=== PATIENT | female | born 1945 | race Caucasian/White ===

== ENCOUNTER → 2017-04-10 | Outpatient (CLI) | payer OTHER ==
[2017-04-10 12:03] LABS: Basophils # (auto) 0.1 uL; Basophils % (auto) 0.7 % (0.0-2.0); Eosinophils # (auto) 0.1 uL; Hematocrit 42.6 % (36.0-46.0); Hemoglobin 13.9 g/dL (12.2-16.2); Lymphocytes # (auto) 2.5 uL; Lymphocytes % (auto) 22.7 % (10.0-50.0); Mean Corpuscular Hgb Conc. 32.6 g/dL (32.0-36.0); Mean Platelet Volume 8.9 fL (6.9-10.8); Monocytes # (auto) 0.9 uL; Monocytes % (auto) 8.1 % (0.0-12.0); Neutrophils # (auto) 7.6 uL; Neutrophils % (auto) 67.5 % (37.0-80.0); Nucleated Red Blood Cells % 0.1 %; Platelet Count (auto) 221 10^3/uL (140-450); Red Cell Distribution Width 14.5 % (11.8-14.3); White Blood Cell 11.2 10^3/uL (4.4-10.8)
[2017-04-10 12:43] LABS: Albumin 3.4 g/dL (3.4-5.0); BUN/Creatinine Ratio 23.6; Bilirubin, Total 0.2 mg/dL (0.2-1.0); Calcium 9.8 mg/dL (8.5-10.1); Potassium 4.8 mmol/L (3.5-5.1); Total Protein 7.3 g/dL (6.4-8.2)
== END | disposition home or self-care (01) ==
LOC: LAB 11:29
PROVIDERS: ATTEND Internal Medicine
DX: Z13.1 Encounter for screening for diabetes mellitus (principal); I10 Essential (primary) hypertension; E78.5 Hyperlipidemia, unspecified; R79.89 Other specified abnormal findings of blood chemistry
CPT/HCPCS: 36415; 80053; 80061; 82043; 83036; 84443; 85025

== ENCOUNTER 2017-04-17 15:30 | Inpatient (IN) | payer OTHER ==
[~2017-04-17] VITALS: Ht 162.6 cm; Wt 116.6 kg
[2017-04-17] MEDS ORDERED: SODIUM CHLORIDE 0.9% 1,000 ML IV ONE (16:05)
[2017-04-17] MEDS ORDERED: AZITHROMYCIN 500MG/D5W 250ML 250 ML IV ONE (16:15)
[2017-04-17] MEDS ORDERED: cefTRIAXone 1GM/50ML D5W 50 ML IV ONE (16:15)
[2017-04-17 16:36] LABS: Lactic Acid w/Reflex 2.4 mmol/L (0.4-2.0)
[2017-04-17 16:45] LABS: Albumin 3.4 g/dL (3.4-5.0); Anion Gap 7 (5-15); Aspartate Aminotransferase 16 U/L (15-37); BUN/Creatinine Ratio 23.6; Basophils # (auto) 0.1 uL; Basophils % (auto) 0.7 % (0.0-2.0); Blood Urea Nitrogen 39 mg/dL (7-18); Calcium 9.6 mg/dL (8.5-10.1); Carbon Dioxide 29 mmol/L (21-32); Chloride 104 mmol/L (98-107); Eosinophils # (auto) 0.2 uL; GFR African American 40 mL/min; GFR Non-African American 33 mL/min; Glucose 137 mg/dL (74-106); Hematocrit 42.6 % (36.0-46.0); Hemoglobin 13.9 g/dL (12.2-16.2); Lymphocytes # (auto) 2.2 uL; Lymphocytes % (auto) 17.9 % (10.0-50.0); Magnesium 2.5 mg/dL (1.6-2.6); Mean Corpuscular Hgb Conc. 32.6 g/dL (32.0-36.0); Mean Corpuscular Volume 88.9 fL (80.0-100.0); Mean Platelet Volume 9.4 fL (6.9-10.8); Monocytes % (auto) 8.1 % (0.0-12.0); Neutrophils % (auto) 71.3 % (37.0-80.0); Platelet Count (auto) 218 10^3/uL (140-450); Potassium 4.9 mmol/L (3.5-5.1); Red Cell Distribution Width 14.7 % (11.8-14.3); Sodium 140 mmol/L (136-145); White Blood Cell 12.6 10^3/uL (4.4-10.8)
[2017-04-17 16:46] LABS: INR 0.9 (0.9-1.15); Partial Thromboplastin Time 25.3 sec (22.64-33.71); Prothrombin Time 9.8 sec (9.37-12.3)
[2017-04-17 16:49] LABS: Alkaline Phosphatase 96 U/L (45-117); Bilirubin, Total 0.3 mg/dL (0.2-1.0); Total Protein 6.9 g/dL (6.4-8.2)
[2017-04-17 17:11] LABS: REFLEX LACTIC ACID YES OR NO YES
[2017-04-17] MEDS ORDERED: DEXTROSE (50%) 50ML SYRG IV PRN (21:45)
[2017-04-17] MEDS ORDERED: SODIUM CHLORIDE 0.9% 1,000 ML IV SCH (21:45)
[2017-04-17 21:55] LABS: B-Type Natriuretic Peptide 29.5 pg/mL (0-100)
[2017-04-17] MEDS: InsuLIN REG 1unit/0.01ml Soln (100units/ml) SC SCH (21:58)
[2017-04-17] MEDS: ACCU-CHEK COMFORT CURVE STRIP VI SCH (21:58)
[2017-04-17 22:18] LABS: Temperature: 23.7 C (20.0-25.0)
[2017-04-18] VITALS (8 sets, daily range): BP systolic 91–117; BP diastolic 42–75
[2017-04-18] MEDS: IPRATROPIUM BROM 0.5 MG/2.5ML INH SOL NEB SCH ×4 (00:55→19:11)
[2017-04-18] MEDS: ALBUTEROL SULF 2.5 MG/0.5ML(0.5%) NEB SOLN NEB SCH ×4 (00:55→12:16)
[2017-04-18 06:38] LABS: Basophils # (auto) 0.1 uL; Basophils % (auto) 0.9 % (0.0-2.0); Eosinophils # (auto) 0.3 uL; Eosinophils % (auto) 2.6 % (0.0-7.0); Hematocrit 40.6 % (36.0-46.0); Hemoglobin 13.1 g/dL (12.2-16.2); Lymphocytes # (auto) 2.8 uL; Lymphocytes % (auto) 25.2 % (10.0-50.0); Mean Corpuscular Hemoglobin 28.8 pg (28.0-32.0); Mean Corpuscular Hgb Conc. 32.4 g/dL (32.0-36.0); Mean Corpuscular Volume 89.1 fL (80.0-100.0); Mean Platelet Volume 9.1 fL (6.9-10.8); Monocytes # (auto) 1.1 uL; Monocytes % (auto) 10.2 % (0.0-12.0); Neutrophils # (auto) 6.8 uL; Neutrophils % (auto) 61.1 % (37.0-80.0); Nucleated Red Blood Cells % 0.1 %; Platelet Count (auto) 196 10^3/uL (140-450); Red Cell Distribution Width 14.7 % (11.8-14.3); White Blood Cell 11.2 10^3/uL (4.4-10.8)
[2017-04-18] MEDS: InsuLIN REG 1unit/0.01ml Soln (100units/ml) SC SCH ×4 (07:00→21:55)
[2017-04-18 07:01] LABS: BUN/Creatinine Ratio 23.7; Calcium 9.2 mg/dL (8.5-10.1); Potassium 5.3 mmol/L (3.5-5.1)
[2017-04-18] MEDS: LEVOTHYROXINE SODIUM 50 MCG TAB PO SCH (07:14)
[2017-04-18] MEDS: ACCU-CHEK COMFORT CURVE STRIP VI SCH ×4 (07:18→21:55)
[2017-04-18] MEDS ORDERED: FURO40TA4 PO (09:03)
[2017-04-18] MEDS ORDERED: POTA10TA34 PO (09:03)
[2017-04-18] MEDS ORDERED: ALBU18 IN (09:03)
[2017-04-18] MEDS ORDERED: LISI40TA PO (09:03)
[2017-04-18] MEDS ORDERED: LEVO50TA7 PO (09:03)
[2017-04-18] MEDS ORDERED: METF-370 PO (09:03)
[2017-04-18] MEDS: AZITHROMYCIN 500MG/D5W 250ML 250 ML IV SCH (09:53)
[2017-04-18] MEDS ORDERED: DOXYCYCLINE HYC 100MG/250ML 250 ML IV SCH (10:00)
[2017-04-18] MEDS ORDERED: guaiFENesin-DEXTROMETHORPHAN 5ML SYR PO PRN (14:30)
[2017-04-18] MEDS ORDERED: cefTRIAXone 1GM/50ML D5W 50 ML IV ONE (14:30)
[2017-04-18] MEDS: SODIUM CHLORIDE 0.9% 1,000 ML IV SCH (16:58)
[2017-04-19 05:00] VITALS: BP 104/52
[2017-04-19 06:17] LABS: Urine RBC None Seen /hpf (0 - 4)
[2017-04-19 06:23] LABS: Basophils # (auto) 0.1 uL; Basophils % (auto) 0.9 % (0.0-2.0); Eosinophils # (auto) 0.3 uL; Eosinophils % (auto) 2.8 % (0.0-7.0); Hematocrit 41.2 % (36.0-46.0); Hemoglobin 13.4 g/dL (12.2-16.2); Lymphocytes # (auto) 2.5 uL; Lymphocytes % (auto) 22.8 % (10.0-50.0); Mean Corpuscular Hemoglobin 28.9 pg (28.0-32.0); Mean Corpuscular Hgb Conc. 32.5 g/dL (32.0-36.0); Mean Corpuscular Volume 88.9 fL (80.0-100.0); Mean Platelet Volume 8.9 fL (6.9-10.8); Monocytes # (auto) 1.1 uL; Neutrophils # (auto) 6.8 uL; Neutrophils % (auto) 63.5 % (37.0-80.0); Platelet Count (auto) 188 10^3/uL (140-450); Red Cell Distribution Width 14.5 % (11.8-14.3); White Blood Cell 10.8 10^3/uL (4.4-10.8)
[2017-04-19 06:28] LABS: Urine Bilirubin Negative (Negative); Urine Blood Negative /uL (Negative); Urine Color Yellow (Yellow); Urine Glucose Normal (Normal); Urine Ketone Negative (Negative); Urine Nitrite Negative (Negative); Urine Squamous Epithelial Cell FEW /hpf (<5); Urine Urobilinogen Normal (Negative); Urine pH 5.5 (5.0-8.0)
[2017-04-19] MEDS: LEVOTHYROXINE SODIUM 50 MCG TAB PO SCH (06:34)
[2017-04-19] MEDS: ACCU-CHEK COMFORT CURVE STRIP VI SCH ×4 (06:34→21:45)
[2017-04-19] MEDS: InsuLIN REG 1unit/0.01ml Soln (100units/ml) SC SCH ×4 (06:34→21:46)
[2017-04-19 06:42] LABS: BUN/Creatinine Ratio 24.7; Calcium 9.4 mg/dL (8.5-10.1); Magnesium 2.4 mg/dL (1.6-2.6); Potassium 4.5 mmol/L (3.5-5.1)
[2017-04-19] MEDS: IPRATROPIUM BROM 0.5 MG/2.5ML INH SOL NEB SCH ×3 (06:45→17:58)
[2017-04-19] MEDS: ALBUTEROL SULF 2.5 MG/0.5ML(0.5%) NEB SOLN NEB SCH ×4 (06:45→17:59)
[2017-04-19] MEDS ORDERED: HYDROcodone-ACET 5/325MG TAB PO PRN (07:30)
[2017-04-19] MEDS: SODIUM CHLORIDE 0.9% 1,000 ML IV SCH (07:57)
[2017-04-19] MEDS ORDERED: cefTRIAXone 1GM/50ML D5W 50 ML IV SCH (09:00)
[2017-04-19 09:34] VITALS: BP 97/68
[2017-04-19] MEDS: AZITHROMYCIN 500MG/D5W 250ML 250 ML IV SCH (11:37)
[2017-04-19 13:00] VITALS: BP 84/60
[2017-04-19] MEDS ORDERED: AMIODARONE HCL 900 MG in DEXTROSE 500 ML IV SCH ×2 (13:27→19:27)
[2017-04-19] MEDS: APIXABAN 5 MG TAB PO SCH ×2 (13:41→21:45)
[2017-04-19] MEDS: DOXYCYCLINE HYC 100MG/250ML 250 ML IV SCH (14:33)
[2017-04-19] MEDS ORDERED: IOHEXOL 350 MG/ML 100ML IJ ONE ×2 (14:44→18:42)
[2017-04-19 15:44] VITALS: BP 123/66
[2017-04-19 19:52] VITALS: BP 118/50
[2017-04-19 20:00] VITALS: BP 118/50
[2017-04-20] VITALS (10 sets, daily range): BP systolic 112–143; BP diastolic 45–79
[2017-04-20] MEDS: SODIUM CHLORIDE 0.9% 1,000 ML IV SCH ×2 (00:05→17:00)
[2017-04-20] MEDS: DOXYCYCLINE HYC 100MG/250ML 250 ML IV SCH ×2 (01:30→14:10)
[2017-04-20] MEDS: ALBUTEROL SULF 2.5 MG/0.5ML(0.5%) NEB SOLN NEB SCH ×3 (05:55→18:00)
[2017-04-20 05:56] LABS: BUN/Creatinine Ratio 21.7; Calcium 9.3 mg/dL (8.5-10.1); Potassium 4.3 mmol/L (3.5-5.1)
[2017-04-20] MEDS: IPRATROPIUM BROM 0.5 MG/2.5ML INH SOL NEB SCH ×3 (05:58→20:26)
[2017-04-20] MEDS: InsuLIN REG 1unit/0.01ml Soln (100units/ml) SC SCH ×4 (06:36→21:59)
[2017-04-20] MEDS: ACCU-CHEK COMFORT CURVE STRIP VI SCH ×4 (06:36→21:59)
[2017-04-20] MEDS: LEVOTHYROXINE SODIUM 50 MCG TAB PO SCH (06:37)
[2017-04-20] MEDS: APIXABAN 5 MG TAB PO SCH (10:00)
[2017-04-20] MEDS ORDERED: AMIODARONE HCL 200 MG TAB PO ONE (10:30)
[2017-04-20] MEDS ORDERED: ALBUAER3 IN (14:47)
[2017-04-20] MEDS ORDERED: POM (14:57)
[2017-04-20] MEDS ORDERED: APIXABAN 5 MG TAB PO SCH (22:00)
[2017-04-20] MEDS: AMIODARONE HCL 200 MG TAB PO SCH (22:05)
[2017-04-21] VITALS (7 sets, daily range): BP systolic 110–143; BP diastolic 45–71
[2017-04-21] MEDS: DOXYCYCLINE HYC 100MG/250ML 250 ML IV SCH ×2 (01:29→13:48)
[2017-04-21] MEDS: ALBUTEROL SULF 2.5 MG/0.5ML(0.5%) NEB SOLN NEB SCH ×3 (05:56→19:36)
[2017-04-21] MEDS: IPRATROPIUM BROM 0.5 MG/2.5ML INH SOL NEB SCH ×4 (05:56→19:33)
[2017-04-21] MEDS: LEVOTHYROXINE SODIUM 50 MCG TAB PO SCH (06:30)
[2017-04-21] MEDS: ACCU-CHEK COMFORT CURVE STRIP VI SCH ×4 (06:30→22:16)
[2017-04-21] MEDS: InsuLIN REG 1unit/0.01ml Soln (100units/ml) SC SCH ×4 (06:31→22:18)
[2017-04-21 06:35] LABS: Basophils # (auto) 0.1 uL; Basophils % (auto) 0.7 % (0.0-2.0); Eosinophils # (auto) 0.2 uL; Eosinophils % (auto) 1.8 % (0.0-7.0); Lymphocytes # (auto) 1.3 uL; Lymphocytes % (auto) 11.2 % (10.0-50.0); Mean Corpuscular Hemoglobin 28.9 pg (28.0-32.0); Mean Corpuscular Hgb Conc. 32.6 g/dL (32.0-36.0); Mean Corpuscular Volume 88.8 fL (80.0-100.0); Mean Platelet Volume 9.6 fL (6.9-10.8); Monocytes # (auto) 0.9 uL; Neutrophils # (auto) 9.2 uL; Neutrophils % (auto) 78.3 % (37.0-80.0); Platelet Count (auto) 185 10^3/uL (140-450); White Blood Cell 11.8 10^3/uL (4.4-10.8)
[2017-04-21 06:58] LABS: BUN/Creatinine Ratio 20.5; Calcium 9.6 mg/dL (8.5-10.1); Magnesium 2.3 mg/dL (1.6-2.6); Potassium 4.1 mmol/L (3.5-5.1)
[2017-04-21] MEDS: AMIODARONE HCL 200 MG TAB PO SCH ×2 (10:13→21:32)
[2017-04-21] MEDS ORDERED: AMIODARONE HCL 200 MG TAB PO ONE (10:30)
[2017-04-21] MEDS: PANTOPRAZOLE 40 MG TAB PO SCH (11:04)
[2017-04-22 00:30] VITALS: BP 119/72
[2017-04-22] MEDS: ALBUTEROL SULF 2.5 MG/0.5ML(0.5%) NEB SOLN NEB SCH ×4 (00:32→18:00)
[2017-04-22] MEDS: IPRATROPIUM BROM 0.5 MG/2.5ML INH SOL NEB SCH ×4 (00:32→19:18)
[2017-04-22] MEDS: DOXYCYCLINE HYC 100MG/250ML 250 ML IV SCH (01:07)
[2017-04-22] MEDS: ACCU-CHEK COMFORT CURVE STRIP VI SCH ×4 (06:36→22:26)
[2017-04-22] MEDS: InsuLIN REG 1unit/0.01ml Soln (100units/ml) SC SCH ×4 (06:36→22:26)
[2017-04-22] MEDS: LEVOTHYROXINE SODIUM 50 MCG TAB PO SCH (07:55)
[2017-04-22 08:00] VITALS: BP 122/58
[2017-04-22] MEDS: PANTOPRAZOLE 40 MG TAB PO SCH (09:53)
[2017-04-22] MEDS: AMIODARONE HCL 200 MG TAB PO SCH ×2 (09:53→22:25)
[2017-04-22] MEDS: DOXYCYCLINE 100 MG TAB/CAP PO SCH ×2 (11:56→22:25)
[2017-04-22 12:59] VITALS: BP 101/72
[2017-04-22] MEDS ORDERED: POTASSIUM CHL 10 Meq TABLET PO ONE (15:30)
[2017-04-22] MEDS ORDERED: FUROSEMIDE 40 MG TAB PO ONE (15:30)
[2017-04-22 17:56] VITALS: BP 120/58
[2017-04-22 21:38] VITALS: BP 125/73
[2017-04-23 04:45] VITALS: BP 106/70
[2017-04-23] MEDS: LEVOTHYROXINE SODIUM 50 MCG TAB PO SCH (06:31)
[2017-04-23] MEDS: ACCU-CHEK COMFORT CURVE STRIP VI SCH ×4 (06:31→22:06)
[2017-04-23] MEDS: InsuLIN REG 1unit/0.01ml Soln (100units/ml) SC SCH ×4 (06:32→22:00)
[2017-04-23] MEDS: ALBUTEROL SULF 2.5 MG/0.5ML(0.5%) NEB SOLN NEB SCH ×2 (06:59→19:01)
[2017-04-23] MEDS: IPRATROPIUM BROM 0.5 MG/2.5ML INH SOL NEB SCH ×4 (07:02→19:01)
[2017-04-23 07:08] LABS: Basophils # (auto) 0.1 uL; Eosinophils # (auto) 0.2 uL; Eosinophils % (auto) 1.8 % (0.0-7.0); Hematocrit 41.1 % (36.0-46.0); Hemoglobin 13.4 g/dL (12.2-16.2); Lymphocytes # (auto) 1.3 uL; Lymphocytes % (auto) 10.7 % (10.0-50.0); Mean Corpuscular Hemoglobin 29.1 pg (28.0-32.0); Mean Corpuscular Hgb Conc. 32.7 g/dL (32.0-36.0); Mean Corpuscular Volume 88.9 fL (80.0-100.0); Mean Platelet Volume 9.3 fL (6.9-10.8); Monocytes % (auto) 8.1 % (0.0-12.0); Neutrophils # (auto) 9.6 uL; Neutrophils % (auto) 78.4 % (37.0-80.0); Platelet Count (auto) 192 10^3/uL (140-450); White Blood Cell 12.2 10^3/uL (4.4-10.8)
[2017-04-23 07:22] LABS: BUN/Creatinine Ratio 24.8; Calcium 9.4 mg/dL (8.5-10.1); Potassium 3.9 mmol/L (3.5-5.1)
[2017-04-23 07:26] LABS: Bilirubin, Total 0.3 mg/dL (0.2-1.0); Total Protein 6.7 g/dL (6.4-8.2)
[2017-04-23 08:19] VITALS: BP 123/70
[2017-04-23] MEDS: PANTOPRAZOLE 40 MG TAB PO SCH (09:16)
[2017-04-23] MEDS: DOXYCYCLINE 100 MG TAB/CAP PO SCH ×2 (09:16→22:06)
[2017-04-23] MEDS: AMIODARONE HCL 200 MG TAB PO SCH ×2 (09:16→22:05)
[2017-04-23] MEDS ORDERED: FUROSEMIDE 40 MG TAB PO SCH (10:00)
[2017-04-23] MEDS ORDERED: POTASSIUM CHL 20 Meq TABLET PO SCH (10:00)
[2017-04-23] MEDS ORDERED: LIDOCAINE HCL 2 % INJ 2ML MPF NEB ONE (12:00)
[2017-04-23] MEDS ORDERED: MEPERIDINE HCL (25 MG/ML) 1ML VIAL IM ONE (12:00)
[2017-04-23 12:06] VITALS: BP 100/57
[2017-04-23 13:32] LABS: INR 0.96 (0.9-1.15); Partial Thromboplastin Time 27.8 sec (22.64-33.71); Prothrombin Time 10.5 sec (9.37-12.3)
[2017-04-23] MEDS ORDERED: LIDOCAINE 2%HCL (LOCAL ANESTH.) INJ 20ML MDV ONE (14:01)
[2017-04-23] MEDS ORDERED: EPINEPHrine HCL 1 MG/1 ML AMP ONE (14:02)
[2017-04-23] MEDS ORDERED: SODIUM CHLORIDE LOCK 10 ML ONE (14:02)
[2017-04-23] MEDS ORDERED: LIDOCAINE HCL 2% TOP JELLY 5ML TOP ONE (14:03)
[2017-04-23] MEDS ORDERED: SODIUM CHLORIDE LOCK 20 ML ONE (14:04)
[2017-04-23] MEDS: MIDAZOLAM HCL 5 MG/ML-1ML VIAL ONE ×3 (14:25→14:55)
[2017-04-23 20:59] VITALS: BP 120/62
[2017-04-24 04:43] VITALS: BP 115/84
[2017-04-24 06:34] LABS: Basophils # (auto) 0.1 uL; Basophils % (auto) 0.7 % (0.0-2.0); Eosinophils # (auto) 0.1 uL; Eosinophils % (auto) 0.7 % (0.0-7.0); Hematocrit 43.5 % (36.0-46.0); Hemoglobin 13.9 g/dL (12.2-16.2); Lymphocytes # (auto) 1.2 uL; Lymphocytes % (auto) 9.4 % (10.0-50.0); Mean Corpuscular Hemoglobin 28.4 pg (28.0-32.0); Mean Corpuscular Hgb Conc. 31.9 g/dL (32.0-36.0); Mean Platelet Volume 9.2 fL (6.9-10.8); Monocytes # (auto) 0.9 uL; Monocytes % (auto) 7.2 % (0.0-12.0); Neutrophils # (auto) 10.2 uL; Platelet Count (auto) 208 10^3/uL (140-450); Red Cell Distribution Width 13.8 % (11.8-14.3); White Blood Cell 12.4 10^3/uL (4.4-10.8)
[2017-04-24] MEDS: LEVOTHYROXINE SODIUM 50 MCG TAB PO SCH (06:42)
[2017-04-24] MEDS: ACCU-CHEK COMFORT CURVE STRIP VI SCH ×2 (06:42→11:29)
[2017-04-24] MEDS: InsuLIN REG 1unit/0.01ml Soln (100units/ml) SC SCH ×2 (06:46→11:29)
[2017-04-24 06:51] LABS: Calcium 10.3 mg/dL (8.5-10.1); Potassium 4.2 mmol/L (3.5-5.1)
[2017-04-24 06:55] LABS: BUN/Creatinine Ratio 25.5
[2017-04-24] MEDS: ALBUTEROL SULF 2.5 MG/0.5ML(0.5%) NEB SOLN NEB SCH ×3 (06:57→12:00)
[2017-04-24] MEDS: IPRATROPIUM BROM 0.5 MG/2.5ML INH SOL NEB SCH ×3 (06:57→12:18)
[2017-04-24] MEDS: PANTOPRAZOLE 40 MG TAB PO SCH (10:27)
[2017-04-24] MEDS: DOXYCYCLINE 100 MG TAB/CAP PO SCH (10:27)
[2017-04-24] MEDS: AMIODARONE HCL 200 MG TAB PO SCH (10:27)
[2017-04-24 10:40] VITALS: BP 111/62
[2017-04-24 13:00] VITALS: BP 122/55
[2017-04-24] MEDS ORDERED: SACC250C PO (14:17)
[2017-04-24] MEDS ORDERED: APIX5TAB PO (14:17)
[2017-04-24] MEDS ORDERED: POTA10TA34 PO (14:17)
[2017-04-24] MEDS ORDERED: DOX100T PO (14:17)
[2017-04-24] MEDS ORDERED: AMI200T PO (14:17)
[2017-04-24] MEDS ORDERED: FURO40TA PO (14:17)
[2017-04-24] MEDS ORDERED: LISI-646 PO (14:17)
[2017-04-24] MEDS ORDERED: PANT40T PO (14:17)
[2017-04-24 14:47] VITALS: BP 111/62
[2017-04-24 16:28] VITALS: BP 115/56
[2017-04-24 17:49] VITALS: BP 111/71
== END 2017-04-24 17:45 | disposition home or self-care (01) | DRG 871 ==
LOC: ER 15:33 → TELE 15:34 → TELE-CENTR 04-18 08:17 → DOU IN ICU 04-19 13:50 → TELE-WESTW 04-22 11:58
PROVIDERS: ADMIT Nurse Practitioner Family; ATTEND Internal Medicine
PROC: 5A09557 Assistance with Respiratory Ventilation, Greater than 96 Consecutive Hours, Continuous Positive Airway Pressure (ICD-10-PCS; 2017-04-17)
PROC: 0BB58ZX Excision of Right Middle Lobe Bronchus, Via Natural or Artificial Opening Endoscopic, Diagnostic (ICD-10-PCS; principal; 2017-04-23 14:20)
DX: A41.9 Sepsis, unspecified organism (principal); J18.1 Lobar pneumonia, unspecified organism; J96.01 Acute respiratory failure with hypoxia; N17.0 Acute kidney failure with tubular necrosis; I13.0 Hypertensive heart and chronic kidney disease with heart failure and stage 1 through stage 4 chronic kidney disease, or unspecified chronic kidney disease; E87.2 Acidosis; Z93.0 Tracheostomy status; E11.21 Type 2 diabetes mellitus with diabetic nephropathy; I50.9 Heart failure, unspecified; I08.1 Rheumatic disorders of both mitral and tricuspid valves; Z99.81 Dependence on supplemental oxygen; J44.0 Chronic obstructive pulmonary disease with (acute) lower respiratory infection; Z68.41 Body mass index [BMI] 40.0-44.9, adult; I95.9 Hypotension, unspecified; E11.22 Type 2 diabetes mellitus with diabetic chronic kidney disease; N18.3 Chronic kidney disease, stage 3 (moderate); E03.9 Hypothyroidism, unspecified; G47.33 Obstructive sleep apnea (adult) (pediatric); I48.0 Paroxysmal atrial fibrillation; I70.0 Atherosclerosis of aorta; E66.01 Morbid (severe) obesity due to excess calories; J40 Bronchitis, not specified as acute or chronic
CPT/HCPCS: 36415; 36600; 71010; 71275; 80048; 80053; 80061; 81001; 82805; 82962; 83036; 83605; 83735; 83880; 84443; 84484; 85025; 85379; 85610; 85730; 86850; 86900; 86901; 87040; 87081; 93005; 93306; 93970; 94640; 94660; 94761; 96361; 96365; 96366; 96368; J0171; J0696; J1815; J2250; J3490

== ENCOUNTER → 2017-05-03 | Outpatient (CLI) | payer OTHER ==
[~2017-05-03] MED LIST: ALBUAER3 IN; AMI200T PO; APIX5TAB PO; DOX100T PO; FURO40TA PO; LEVO50TA7 PO; LISI-646 PO; METF-370 PO; PANT40T PO; POM; POTA10TA34 PO; SACC250C PO
[2017-05-03 15:53] LABS: Allen Test Yes; Base Excess 7.1 mmol/L (-2.0-2.0); Blood 02Sat 79.3 % (96-100); Blood COHb 0.4 % (0.5-1.5); Blood MetHb 0.4 % (0.0-1.5); HCO3 32.9 mmol/L (22-26.0); HHb 20.5 % (0.0-5.0); MODE ROOM AIR; O2Hb 78.7 % (94.0-97.0); PCO2 50.9 mmHg (35.0-45.0); PCO2(T) 50.9 mmHg (35.0-45.0); PO2 43.8 mmHg (80.0-100.0); PO2(T) 43.8 mmHg (80.0-100.0); Sample Type Arterial; pH 7.428 (7.350-7.450)
[2017-05-03 16:47] LABS: Basophils # (auto) 0.1 uL; Basophils % (auto) 0.7 % (0.0-2.0); Eosinophils # (auto) 0.2 uL; Hematocrit 39.9 % (36.0-46.0); Hemoglobin 12.9 g/dL (12.2-16.2); Lymphocytes # (auto) 1.1 uL; Lymphocytes % (auto) 11.9 % (10.0-50.0); Mean Corpuscular Hemoglobin 28.5 pg (28.0-32.0); Mean Corpuscular Hgb Conc. 32.4 g/dL (32.0-36.0); Mean Corpuscular Volume 88.1 fL (80.0-100.0); Mean Platelet Volume 8.9 fL (6.9-10.8); Monocytes # (auto) 0.8 uL; Monocytes % (auto) 8.5 % (0.0-12.0); Neutrophils # (auto) 7.4 uL; Neutrophils % (auto) 76.9 % (37.0-80.0); Platelet Count (auto) 286 10^3/uL (140-450); Red Cell Distribution Width 14.1 % (11.8-14.3); White Blood Cell 9.5 10^3/uL (4.4-10.8)
[2017-05-03 17:08] LABS: BUN/Creatinine Ratio 15.2; Potassium 5.1 mmol/L (3.5-5.1)
== END | disposition home or self-care (01) ==
LOC: LAB 15:05 → RT 15:15
PROVIDERS: ATTEND Internal Medicine
DX: R73.09 Other abnormal glucose (principal); J44.9 Chronic obstructive pulmonary disease, unspecified; I50.9 Heart failure, unspecified
CPT/HCPCS: 36415; 36600; 80048; 82805; 85025

== ENCOUNTER 2017-05-26 11:13 | Emergency (ER) | payer OTHER, MEDICAID ==
[~2017-05-26] VITALS: Ht 162.6 cm; Wt 113.4 kg
[2017-05-26] MEDS ORDERED: SODIUM CHLORIDE 0.9% 1,000 ML IV ONE (11:38)
[2017-05-26] MEDS ORDERED: LEVOFLOXACIN 500 MG/100 ML PREMIX BAG IV ONE (11:45)
[2017-05-26] MEDS ORDERED: AMIO200T33 PO (11:56)
[2017-05-26 12:27] LABS: INR 1.1 (0.9-1.15); Partial Thromboplastin Time 29.1 sec (22.64-33.71)
[2017-05-26 12:28] LABS: Alanine Aminotransferase 26 U/L (13-56); Albumin 2.9 g/dL (3.4-5.0); Anion Gap 8 (5-15); Aspartate Aminotransferase 19 U/L (15-37); BUN/Creatinine Ratio 16.9; Blood Urea Nitrogen 49 mg/dL (7-18); Carbon Dioxide 29 mmol/L (21-32); Chloride 100 mmol/L (98-107); GFR African American 21 mL/min; GFR Non-African American 17 mL/min; Glucose 111 mg/dL (74-106); Magnesium 2.5 mg/dL (1.6-2.6); Potassium 4.9 mmol/L (3.5-5.1); Sodium 137 mmol/L (136-145)
[2017-05-26 12:30] LABS: Alkaline Phosphatase 93 U/L (45-117); Bilirubin, Total 0.2 mg/dL (0.2-1.0); Total Protein 6.6 g/dL (6.4-8.2)
[2017-05-26] MEDS ORDERED: DEXAMETHASONE SOD PHOS 10MG/1ML VIAL INJ IV ONE (12:45)
[2017-05-26 12:57] LABS: Basophils # (auto) 0.1 uL; Eosinophils # (auto) 0.1 uL; Eosinophils % (auto) 1.7 % (0.0-7.0); Hemoglobin 13.3 g/dL (12.2-16.2); Lymphocytes % (auto) 12.7 % (10.0-50.0); Mean Corpuscular Hemoglobin 28.4 pg (28.0-32.0); Mean Corpuscular Hgb Conc. 32.3 g/dL (32.0-36.0); Mean Corpuscular Volume 87.9 fL (80.0-100.0); Monocytes # (auto) 0.8 uL; Monocytes % (auto) 9.9 % (0.0-12.0); Neutrophils # (auto) 5.8 uL; Neutrophils % (auto) 74.7 % (37.0-80.0); Nucleated Red Blood Cells % 0.1 %; Platelet Count (auto) 216 10^3/uL (140-450); Red Blood Cells 4.67 10^6/uL (4.0-5.20); Red Cell Distribution Width 14.6 % (11.8-14.3); White Blood Cell 7.7 10^3/uL (4.4-10.8)
[2017-05-26 13:37] LABS: Urine Bacteria NONE SEEN /hpf (None Seen); Urine Blood Negative /uL (Negative); Urine Specific Gravity 1.015 (1.001-1.035); Urine WBC <1 /hpf (0 - 5)
[2017-05-26 14:45] VITALS: BP 110/52
== END 2017-05-26 15:22 | disposition short-term general hospital (02) ==
LOC: ER 11:13
DX: G93.9 Disorder of brain, unspecified (principal); R41.82 Altered mental status, unspecified; I11.0 Hypertensive heart disease with heart failure; I50.9 Heart failure, unspecified; I48.91 Unspecified atrial fibrillation; J44.9 Chronic obstructive pulmonary disease, unspecified; E78.5 Hyperlipidemia, unspecified; Z99.81 Dependence on supplemental oxygen; Z79.01 Long term (current) use of anticoagulants
CPT/HCPCS: 36415; 36600; 70450; 71010; 80053; 81001; 82805; 83605; 83735; 84484; 85025; 85610; 85730; 87040; 93005; 96361; 96374; 96375; 99291; J1100; J1956; J7030